=== PATIENT | male | born 1945 | race Caucasian/White ===

== ENCOUNTER → 2017-04-29 | Outpatient (CLI) | payer OTHER ==
[~2017-04-29] MED LIST: ALLOPURINOL300 MG PO; ASPIRIN81 M2 PO; CARVEDILOL25 MG PO; CRESTOR10 MG PO; EXFORGE 10-3201 TAB PO; FERROUS GLUCON324 MG PO; LORTAB 7.5-5001 TAB PO; NORVASC10 MG PO; PERCOCET5/325 PO; PRADAXA150 MG PO; PRILOSEC20 M1 PO; SERTRALINE HCL50 MG PO; ZESTRIL40 MG PO
--- NOTE | ~2017-04-29 | CT2 ---
[facility] A Service of [facility] RADIOLOGY TEXT RESULTS PATIENT: JAQUI KAYE LOCATION: [facility] : 47 UNIT #: [id number] AGE: [address]: Agusto Hogue MD SEX: M ORDER DR: [id number] [facility]. [place], [place] [address] [id number] O MR#: [id number] Acc #: [id number] NAME: JAQUI KAYE : 1945 SEX: M STUDY DATE/TIME: 04/29/2017 10:25 UNIT: [facility] ROOM: STUDY DESCRIPTION: CT Abd and Pelv W Cont Attending Physician: Agusto Hogue M.D. Referring Physician: Agusto Hogue M.D. Ordering Physician: Agusto Hogue M.D. Primary Care Physician: Howard Delcid M.D. MEDICAL IMAGING REPORT This report is preliminary unless electronic signature is present EXAM CT abdomen and pelvis with contrast. INDICATION Anemia diagnosed 2 years ago. Colon cancer diagnosed 2 years ago. Staging. Observation for metastatic disease. PROCEDURE Contrast-enhanced CT abdomen and pelvis. This CT exam was performed with one or more of the following radiation dose reduction techniques: automatic exposure control, adjustment of mA and/or kV according to patient size, and iterative reconstruction. COMPARISON 12/25/2015 FINDINGS ABDOMEN WITH CONTRAST: 2-3 mm nodule right lung base along the diaphragm is stable. No liver or splenic lesion. Kidneys, adrenal glands, pancreas, gallbladder unremarkable. Postsurgical change in the sigmoid colon with no abnormal soft tissue. Moderate colonic stool burden. No abdominal adenopathy. PELVIS WITH CONTRAST: No pelvic mass or adenopathy. No aggressive appearing bone lesions. IMPRESSION No evidence for metastatic disease in the abdomen or pelvis. No acute findings. [facility] A Service [facility] RADIOLOGY TEXT RESULTS PATIENT: JAQUI KAYE LOCATION: [facility] : 47 UNIT #: [id number] AGE: [address]: Agusto Hogue MD SEX: M ORDER DR: Dictated by... Julien Bobo M.D. THIS IS AN ELECTRONICALLY VERIFIED REPORT Julien Bobo M.D. at 04/30/2017 2:02 PM KENZIED/essie TD: 04/29/2017 15:36 JOB #: [id number] MEDICAL IMAGING REPORT Page 1 of 1 COPY
[2017-04-29 10:56] LABS: POC - CREATININE 0.98 mg/dL (0.64-1.27); POC - GFR >60.0 mL/min (>60)
== END | disposition home or self-care (01) ==
LOC: CCAT 09:16
PROVIDERS: Internal Medicine Medical Oncology
DX: D50.9 Iron deficiency anemia, unspecified (principal)
CPT/HCPCS: 74177; 82565; Q9967